=== PATIENT | male | born 1995 | race Caucasian/White ===

== ENCOUNTER 2018-04-19 22:52 | Emergency (ER) | payer SELFPAY ==
[~2018-04-19] VITALS: Ht 180.3 cm; Wt 86.0 kg
[2018-04-19 22:57] VITALS: BP 151/88
[2018-04-19] MEDS ORDERED: KETOROLAC 30 MG/1 ML ONE (23:20)
[2018-04-19] MEDS ORDERED: KETOROLAC 30 MG/1 ML IM ONE (23:30)
== END 2018-04-19 23:30 | disposition home or self-care (01) ==
LOC: ED 23:00
DX: M54.6 Pain in thoracic spine (principal); M79.1 Myalgia
CPT/HCPCS: 96372; 99283; J1885